=== PATIENT | female | born 1970 | race Hispanic/Latino ===

== ENCOUNTER → 2021-04-20 | Day surgery (SDC) | payer OTHER ==
[2021-04-19 11:42] VITALS: BMI 27.6
[~2021-04-20] MED LIST: Dexamethasone 4 mg/ml Vial ONE; Lidocaine 1% MPF 2 ML VIAL ONE; Lidocaine 1% PF 5 ML VIAL ONE; Morphine PF 10 MG/10 ML VIAL ONE; Ondansetron PF 4 MG/2 ML Vial ONE; Oxytocin 10 UNITS/ML VIAL ONE; PHENYLEPHRINE-NS 100 MCG/ML 10 ML SYRINGE ONE; PROPOFOL 40 ML ONE
== END ==
LOC: CSHSDC 09:50
PROVIDERS: ATTEND Internal Medicine Gastroenterology
PROC: 0DJD8ZZ Inspection of Lower Intestinal Tract, Via Natural or Artificial Opening Endoscopic (ICD-10-PCS; principal; 2021-04-20)
DX: Z12.11 Encounter for screening for malignant neoplasm of colon (principal); K57.30 Diverticulosis of large intestine without perforation or abscess without bleeding; K64.9 Unspecified hemorrhoids; Z90.49 Acquired absence of other specified parts of digestive tract
CPT/HCPCS: J1100; J2274; J2405; J2704